=== PATIENT | female | born 1990 | race Caucasian/White ===

== ENCOUNTER 2017-01-21 21:31 | Emergency (ER) | payer OTHER | END 2017-01-22 00:07 | disposition home or self-care (01) | LOC: ER 21:31 | DX: S29.9XXA Unspecified injury of thorax, initial encounter (principal); R10.30 Lower abdominal pain, unspecified; R10.2 Pelvic and perineal pain; F17.200 Nicotine dependence, unspecified, uncomplicated; Y04.0XXA Assault by unarmed brawl or fight, initial encounter | CPT/HCPCS: 36415 ==